=== PATIENT | male | born 1945 | race Caucasian/White ===

== ENCOUNTER 2019-09-23 12:10 | Outpatient (CLI) | payer OTHER ==
[~2019-09-23 12:10] MED LIST: LISINOPRIL2.5 MG; METFORMIN HCL500 MG
== END 2019-09-23 12:13 | disposition home or self-care (01) ==
LOC: LAB 12:10
DX: R97.20 Elevated prostate specific antigen [PSA] (principal)

== ENCOUNTER → 2019-10-31 | Outpatient (CLI) | payer OTHER | END | disposition home or self-care (01) | LOC: SONOGRAMA 07:34 | DX: R97.20 Elevated prostate specific antigen [PSA] (principal) ==